=== PATIENT | female | born 1995 | race Caucasian/White ===

== ENCOUNTER 2017-04-16 18:07 | Emergency (ER) | payer OTHER ==
[2017-04-16 18:11] VITALS: BP 116/69; PULSE 85; TEMP 98.7; BMI 33.2
--- NOTE | 2017-04-16 18:11 | PDOC ---
Rapid Medical Evaluation Chief Complaint: Sore Throat Time Seen by Provider: 04/16/17 18:09 Medical Evaluation: Allergies Allergy/AdvReac Type Severity Reaction Status Date / Time No Known Allergies Allergy Verified 10/27/14 03:21 04/16/17 18:10 Pt presents with complaint of : sore throat x 4 days, no fever On brief exam: no erythema to soft palate, tongue red (had bowman lozenge in mouth) I have ordered the following: none Pt will go to the Emergency Dept for further workup Discharge Disposition - Diagnosis Sore throat - Referrals - Patient Instructions - Post Discharge Activity
--- NOTE | 2017-04-16 20:25 | PDOC ---
History of Present Illness - General Chief Complaint: Sore Throat Stated Complaint: sore throat Time Seen by Provider: 04/16/17 18:09 History Source: Patient Exam Limitations: No Limitations - History of Present Illness Initial Comments: 04/18/17 20:17 My Chief Complaint: sore throat History of Present Illness: Pt. is a 21 y/o female here today c/o sore throat for 4 days with no difficulty swallowing or breathing. Pt. denies any other symptoms, travel or sick contacts. Timing/Duration: other (4 days ) Severity: moderate Associated Symptoms: reports: other (sore throat ) Past History - Past Medical History Allergies/Adverse Reactions: Allergies Allergy/AdvReac Type Severity Reaction Status Date / Time No Known Allergies Allergy Verified 04/16/17 18:11 Home Medications: Ambulatory Orders NK [No Known Home Medication] 04/16/17 COPD: No Other medical history: denies - Suicide/Smoking/Psychosocial Hx Smoking History: Never smoked Have you smoked in the past 12 months: No Information on smoking cessation initiated: No Hx Alcohol Use: No Drug/Substance Use Hx: No Substance Use Type: None Review of Systems - Review of Systems Able to Perform ROS?: Yes Constitutional: No: Symptoms Reported HEENTM: Yes: Throat Pain Respiratory: No: Symptoms reported Cardiac (ROS): No: Symptoms Reported ABD/GI: No: Symptoms Reported : No: Symptoms Reported Integumentary: No: Symptoms Reported Hematologic/Lymphatic: Yes: Swollen Glands (rt. posterior cervical ) *Physical Exam - Vital Signs Last Vital Signs Temp Pulse Resp BP Pulse Ox 98.7 F 85 18 116/69 100 04/16/17 18:10 04/16/17 18:10 04/16/17 18:10 04/16/17 18:10 04/16/17 18:10 - Physical Exam General Appearance: Yes: Appropriately Dressed HEENT: positive: TMs Normal, Pharyngeal Erythema. negative: Tonsillar Exudate, Tonsillar Erythema Neck: positive: Lymphadenopathy (L) (posterior cervical ). negative: Tender, Lymphadenopathy (R), Rigidity, Tender lateral Respiratory/Chest: positive: Lungs Clear, Normal Breath Sounds. negative: Chest Tender, Respiratory Distress Cardiovascular: positive: Regular Rhythm, Regular Rate, S1, S2 Integumentary: positive: Normal Color Medical Decision Making - Medical Decision Making 04/16/17 21:39 Pt. is a 21 y/o female here today c/o sore throat for 4 days with no difficulty swallowing or breathing. Pt. denies any other symptoms, travel or sick contacts. Pt. denies any chance of . m Pharyngitis r/o strep PLAN: throat C & S rapid negative decadron 10 mg now feeling better 04/18/17 20:20 *DC/Admit/Observation/Transfer Diagnosis at time of Disposition: Sore throat Pharyngitis Qualifiers: Pharyngitis/tonsillitis etiology: unspecified etiology Qualified Code(s): J02.9 - Acute pharyngitis, unspecified - Discharge Dispostion Disposition: HOME Condition at time of disposition: Stable - Referrals Referrals: Mine Puente [Primary Care Provider] - - Patient Instructions Additional Instructions: drink a lot of fluids and rest You may purchase Cepacol throat lozenges [id number] and use as directed for soreness of throat You may also take ibuprofen as needed as directed by sample preparation supervisor for tenderness of throat and lymph nodes Follow-up with your primary care provider within the next few days Return to emergency room if symptoms worsen any difficulty swallowing or breathing Patient voiced understanding of discharge instructions and all questions were answered - Post Discharge Activity Forms/Work/School Notes: Back to Work
[2017-04-16] MEDS ORDERED: DEXAMETHASONE LIQUID 0.5 MG/5 ML 240 ML BULK BOTTLE PO ONE (21:02)
[2017-04-16] MEDS ORDERED: ACETAMINOPHEN 500 MG TABLET (FP) PO ONE (21:03)
[2017-04-16] MEDS ORDERED: DEXAMETHASONE SOD PHOSPHATE 10 MG/1 ML VIAL ONE (21:03)
[2017-04-16] MEDS ORDERED: ACETAMINOPHEN 500 MG TABLET (FP) ONE (21:04)
== END 2017-04-16 21:45 | disposition home or self-care (01) ==
LOC: JERFT 18:07
DX: J02.9 Acute pharyngitis, unspecified (principal)
CPT/HCPCS: 87070; 87430; 99281-25

== ENCOUNTER 2017-06-10 15:11 | Emergency (ER) | payer OTHER ==
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
[2017-06-10 15:16] VITALS: BP 118/47; PULSE 75; TEMP 98.2; BMI 33.5
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
== END 2017-06-10 17:39 | disposition home or self-care (01) ==
LOC: JERFT 15:11 → SUPCPDRO 15:11 → JERFT 17:39
DX: S40.021A Contusion of right upper arm, initial encounter (principal); Y08.89XA Assault by other specified means, initial encounter; Y93.9 Activity, unspecified; Y92.9 Unspecified place or not applicable; Y07.59 Other non-family member, perpetrator of maltreatment and neglect
CPT/HCPCS: 99281-25

== ENCOUNTER 2018-06-22 18:02 | Emergency (ER) | payer OTHER ==
[2018-06-22 18:44] VITALS: BP 104/71; PULSE 105; BMI 37.0
[2018-06-22] MEDS ORDERED: IBUPROFEN 400 MG TABLET (FP) PO ONE ×2 (18:45→19:45)
--- NOTE | 2018-06-22 18:47 | PDOC ---
Rapid Medical Evaluation Time Seen by Provider: 06/22/18 18:44 Medical Evaluation: Allergies Allergy/AdvReac Type Severity Reaction Status Date / Time No Known Allergies Allergy Verified 06/22/18 18:40 06/22/18 18:44 Pt presents with two days of fever, headache and dizziness. No flu shot this year Exam: neurologically intact, NAD, fever 102 Orders: flu, strep, motrin Pt to proceed to ED for further evaluation Discharge Disposition - Diagnosis Fever - Referrals - Patient Instructions - Post Discharge Activity
--- NOTE | 2018-06-22 19:44 | PDOC ---
History of Present Illness - General Chief Complaint: Respiratory Stated Complaint: FEVER/HEADACHE Time Seen by Provider: 06/22/18 18:44 - History of Present Illness Initial Comments: 06/22/18 19:43 23-year-old female without comorbidities presents for evaluation of flulike symptoms 2 days. Past History - Past Medical History Allergies/Adverse Reactions: Allergies Allergy/AdvReac Type Severity Reaction Status Date / Time No Known Allergies Allergy Verified 06/22/18 18:40 Home Medications: Ambulatory Orders Oseltamivir Phosphate [Tamiflu] 75 mg PO BID #10 capsule 06/22/18 COPD: No Other medical history: lmp 06/05 - Suicide/Smoking/Psychosocial Hx Smoking History: Never smoked Have you smoked in the past 12 months: No Hx Alcohol Use: No Drug/Substance Use Hx: No Substance Use Type: None Review of Systems - Review of Systems Constitutional: Yes: Chills, Diaphoresis, Fever, Malaise, Night Sweats *Physical Exam - Vital Signs Last Vital Signs Temp Pulse Resp BP Pulse Ox 102.6 F H 105 H 18 104/71 99 06/22/18 18:40 06/22/18 18:40 06/22/18 18:40 06/22/18 18:40 06/22/18 18:40 - Physical Exam Comments: 06/22/18 19:43 HEAD: NC/AT EYES: Conjuntiva clear Ears: Canals and TM's normal NOSE: No d/c THROAT: Moist mucous membrances, oral pharanx clear, uvula midline NECK: Supple without adenopathy CARDIAC: S1 S2 LUNGS: CTA Full and Equal breath sounds ABDOMEN: Soft NT ND MS: Full ROM in all joints without edema NEUROLOGIC: No gross sensory or motor deficits, NVID SKIN: Normal color and temperature no lesions or rashes Moderate Sedation - Procedure Monitoring Vital Signs: Procedure Monitoring Vital Signs Temperature 102.6 F H 06/22/18 18:40 Pulse Rate 105 H 06/22/18 18:40 Respiratory Rate 18 06/22/18 18:40 Blood Pressure 104/71 06/22/18 18:40 O2 Sat by Pulse Oximetry (%) 99 06/22/18 18:40 *DC/Admit/Observation/Transfer Diagnosis at time of Disposition: Fever, Influenza A - Discharge Dispostion Disposition: HOME Condition at time of disposition: Stable Decision to Admit order: No - Prescriptions Prescriptions: Oseltamivir Phosphate [Tamiflu] 75 mg PO BID #10 capsule - Referrals Referrals: ON STAFF,NOT [Primary Care Provider] - - Patient Instructions Printed Discharge Instructions: Influenza Additional Instructions: Please take the Tamiflu for the next 5 days as directed. Return to the emergency room should symptoms worsen or go unresolved and follow-up with your primary care physician one to 2 days for further evaluation and treatment options. - Post Discharge Activity Forms/Work/School Notes: Back to Work
[2018-06-22 19:48] VITALS: TEMP 101.1
== END 2018-06-22 19:48 | disposition home or self-care (01) ==
LOC: JER 18:02 → JERFT 18:02
DX: J09.X2 Influenza due to identified novel influenza A virus with other respiratory manifestations (principal)
CPT/HCPCS: 87070; 87804; 87880; 99281-25